=== PATIENT | male | born 1945 | race Caucasian/White ===

== ENCOUNTER 2024-06-30 14:20 | Inpatient (IN) | payer OTHER ==
[~2024-06-30] VITALS: Ht 183 cm; Wt 99.8 kg
[2024-06-30 14:45] VITALS: BP 95/63
[2024-06-30] MEDS ORDERED: ATARAX,VISTARIL10 MG PO (14:56)
[2024-06-30] MEDS ORDERED: PROPAFENONE HC150 MG PO (14:56)
[2024-06-30] MEDS ORDERED: TRAZODONE50 MG PO (14:57)
[2024-06-30] MEDS ORDERED: Lopressor25 MG PO (14:57)
[2024-06-30] MEDS ORDERED: XARE20MG PO (14:57)
[2024-06-30] MEDS ORDERED: RISPERIDONE2 M2 PO (14:57)
[2024-06-30] MEDS ORDERED: LORazepam 1 MG TAB PO ONE ×2 (15:25→17:35)
[2024-06-30 15:39] LABS: BASO % 0.3 % (0.0-1.0); EOS # 0.1 10*3/uL (0.0-0.4); EOS % 1.2 % (1.0-4.0); HEMATOCRIT 48.6 % (42.0-52.0); LYMPH % 28.6 % (27.0-41.0); MEAN CORPUSCULAR HGB 27.4 pg (27.0-31.0); MEAN CORPUSCULAR HGB CONC 31.9 g/dl (33.0-37.0); MEAN PLATELET VOLUME 9.1 fl (9.6-12.3); MONO # 0.9 10*3/uL (0.1-1.0); MONO % 12.8 % (3.0-9.0); NEUT # 3.9 10*3/uL (2.3-7.9); PLATELET COUNT AUTOMATED 281 10*3/uL (130-400); RED BLOOD COUNT 5.65 10*6/uL (4.50-5.90); RED CELL DISTRI WIDTH 14.2 % (0-14.5); WHITE BLOOD COUNT 6.8 10*3/uL (4.8-10.8)
[2024-06-30 15:49] LABS: ACT PARTIAL THROMBO TIME 32.6 SECONDS (20.0-32.1)
[2024-06-30 16:01] LABS: ALKALINE PHOSPHATASE 85 U/L (46-116); BUN 9 mg/dl (9-23); CHLORIDE 104 mmol/L (98-107); CPK 42 U/L (34-171); POTASSIUM 4.2 mmol/L (3.4-5.1); SGPT/ALT 13 U/L (5-49); TOTAL PROTEIN 7.3 gm/dL (6.0-8.0)
[2024-06-30 16:18] LABS: ETHYL ALCOHOL < 3.0 mg/dl (<3)
[2024-06-30 17:11] LABS: BILIRUBIN Negative (Negative); BLOOD Negative (Negative); CLARITY Clear (Clear); COLOR Yellow (Yellow); GLUCOSE Negative (Negative); KETONE Negative (Negative); LEUKO ESTERASE Negative (Negative); NITRITE Negative (Negative); PH 5.5 (4.5-8.0); SPECIFIC GRAVITY 1.015 (1.001-1.030)
[2024-06-30 17:16] LABS: URINE AMPHETAMINES Negative (1000ng/ml); URINE BARBITURATES Negative (200ng/ml); URINE BENZODIAZEPINES Negative (200ng/ml); URINE CANNABINOIDS (THC) Negative (50ng/ml); URINE COCAINE Negative (300ng/ml); URINE METHADONE Negative (300ng/ml); URINE OPIATES Negative (300ng/ml); URINE PHENCYCLIDINE Negative (25ng/ml)
[2024-06-30 17:29] LABS: BACTERIA 1+; MUCOUS 1+; WBC 0-2 wbc/hpf (0-5)
[2024-06-30] MEDS ORDERED: LORazepam 1 MG TAB PO PRN (21:20)
[2024-06-30] MEDS ORDERED: LORazepam 2 MG/ML VIAL IM PRN (21:20)
[2024-06-30] MEDS ORDERED: Ziprasidone Mesylate 20 MG VIAL IM PRN (21:25)
[2024-06-30] MEDS ORDERED: DIVALPROEX (DR) 500 MG TAB PO SCH (21:28)
[2024-06-30] MEDS ORDERED: Memantine Hydrochloride 5 MG TAB PO SCH (21:28)
[2024-06-30] MEDS ORDERED: Magnesium Hydroxide 30 ML UDC PO PRN (22:05)
[2024-06-30] MEDS ORDERED: MG-AL HYDROXIDE/SIMETICONE 30 ML UDC PO PRN (22:05)
[2024-06-30] MEDS ORDERED: ACETAMINOPHEN 325 MG TAB PO PRN (22:05)
[2024-06-30] MEDS ORDERED: Menthol/Zinc Oxide 4 GM THIN T PRN (22:10)
[2024-06-30 22:14] VITALS: BP 126/78
[2024-06-30 22:39] VITALS: BP 126/78
[2024-07-01] MEDS ORDERED: Propafenone Hydrochloride 150 MG TAB PO SCH ×2 (06:00→08:00)
[2024-07-01 07:08] LABS: BASO % 0.4 % (0.0-1.0); EOS # 0.1 10*3/uL (0.0-0.4); EOS % 0.9 % (1.0-4.0); HEMATOCRIT 46.1 % (42.0-52.0); LYMPH % 25.4 % (27.0-41.0); MEAN CELL VOLUME 83.5 fl (80.0-94.0); MEAN CORPUSCULAR HGB 27.5 pg (27.0-31.0); MEAN PLATELET VOLUME 9.5 fl (9.6-12.3); MONO # 0.9 10*3/uL (0.1-1.0); MONO % 11.5 % (3.0-9.0); NEUT # 4.9 10*3/uL (2.3-7.9); NEUT % 61.4 % (47.0-73.0); PLATELET COUNT AUTOMATED 271 10*3/uL (130-400); RED BLOOD COUNT 5.52 10*6/uL (4.50-5.90); RED CELL DISTRI WIDTH 14.2 % (0-14.5); WHITE BLOOD COUNT 7.9 10*3/uL (4.8-10.8)
[2024-07-01 07:34] LABS: ALKALINE PHOSPHATASE 78 U/L (46-116); BUN 8 mg/dl (9-23); CHLORIDE 105 mmol/L (98-107); CHOLESTEROL 141 mg/dL (<200); LDL CHOLESTEROL 85 mg/dL (9-159); POTASSIUM 3.7 mmol/L (3.4-5.1); SGPT/ALT 11 U/L (5-49); TOTAL PROTEIN 6.8 gm/dL (6.0-8.0); TRIGLYCERIDES 162 mg/dl (<150)
[2024-07-01 08:25] VITALS: BP 130/85
[2024-07-01] MEDS ORDERED: RIVAROXABAN 20 MG TAB PO SCH (09:00)
[2024-07-01] MEDS ORDERED: Rivastigmine Tartrate 4.6 MG/24 HR PATCH T SCH (09:00)
[2024-07-01] MEDS ORDERED: Doxycycline Hyclate 100 MG CAP PO SCH (09:00)
[2024-07-01] MEDS ORDERED: DIVALPROEX (DR) 250 MG TAB PO SCH (09:00)
[2024-07-01 09:02] LABS: VITAMIN D, 25-HYDROXY 39.8 ng/mL (30-100)
[2024-07-01] MEDS ORDERED: Metoprolol Tartrate 25 MG TAB PO SCH (10:00)
[2024-07-01] MEDS ORDERED: CYANOCOBALAMIN 1,000 MCG/ML VIAL IM SCH (11:00)
[2024-07-01 14:00] VITALS: BP 130/85
[2024-07-02 08:00] VITALS: BP 120/63
[2024-07-02] MEDS ORDERED: Albuterol Sulf/Ipratropium 3 ML VIAL NEB SCH (08:25)
[2024-07-02] MEDS ORDERED: hydrOXYzine pamoate 25 MG CAP PO PRN (09:25)
[2024-07-02 14:00] VITALS: BP 120/63
[2024-07-03] MEDS ORDERED: Rivastigmine Tartrate 9.5 MG/24 HR PATCH T SCH (09:00)
[2024-07-03] MEDS ORDERED: DIVALPROEX (DR) 500 MG TAB PO SCH (13:00)
[2024-07-03 20:00] VITALS: BP 110/64
[2024-07-03] MEDS ORDERED: Memantine Hydrochloride 5 MG TAB PO SCH (21:00)
[2024-07-04] MEDS ORDERED: ASPIRIN ENTERIC COATED 81 MG TAB PO ONE (02:05)
[2024-07-04 08:00] VITALS: BP 107/51
[2024-07-04] MEDS ORDERED: RIVASTIGMINE 13.3 MG/24 HR TDM T SCH (09:00)
[2024-07-04] MEDS ORDERED: Memantine Hydrochloride 5 MG TAB PO SCH (09:00)
[2024-07-04] MEDS ORDERED: Albuterol Sulf/Ipratropium 3 ML VIAL NEB PRN (09:40)
[2024-07-04 20:00] VITALS: BP 104/520
[2024-07-04] MEDS ORDERED: Memantine Hydrochloride 10 MG TAB PO SCH (21:00)
[2024-07-05 08:10] VITALS: BP 107/61
[2024-07-05] MEDS ORDERED: LORazepam 0.5 MG TAB PO SCH (13:00)
[2024-07-05 17:09] LABS: BILIRUBIN Negative (Negative); BLOOD Negative (Negative); CLARITY Clear (Clear); COLOR Yellow (Yellow); GLUCOSE Negative (Negative); KETONE 1+ (Negative); LEUKO ESTERASE Negative (Negative); NITRITE Negative (Negative); PH 5.5 (4.5-8.0); SPECIFIC GRAVITY 1.025 (1.001-1.030)
[2024-07-05 17:33] LABS: BACTERIA TRACE; RBC 0-2 rbc/hpf (0-2); WBC 0-2 wbc/hpf (0-5)
[2024-07-05 20:00] VITALS: BP 116/64
[2024-07-05] MEDS ORDERED: Memantine Hydrochloride 10 MG TAB PO SCH (21:00)
[2024-07-06 08:00] VITALS: BP 117/66
[2024-07-06] MEDS ORDERED: LORazepam 0.5 MG TAB PO SCH (13:00)
[2024-07-06] MEDS ORDERED: LORazepam 1 MG TAB PO SCH (21:00)
[2024-07-07 08:48] VITALS: BP 96/70
[2024-07-07 20:00] VITALS: BP 104/31
[2024-07-08 07:51] VITALS: BP 136/83
[2024-07-08] MEDS ORDERED: hydrOXYzine pamoate 25 MG CAP PO SCH (13:00)
[2024-07-08 20:00] VITALS: BP 115/55
[2024-07-09 07:57] VITALS: BP 98/72
[2024-07-09 07:59] LABS: BASO % 0.4 % (0.0-1.0); EOS # 0.1 10*3/uL (0.0-0.4); EOS % 1.5 % (1.0-4.0); HEMATOCRIT 45.8 % (42.0-52.0); LYMPH # 2.6 10*3/uL (1.3-4.4); LYMPH % 27.2 % (27.0-41.0); MEAN CELL VOLUME 84.5 fl (80.0-94.0); MEAN CORPUSCULAR HGB 27.7 pg (27.0-31.0); MEAN CORPUSCULAR HGB CONC 32.8 g/dl (33.0-37.0); MEAN PLATELET VOLUME 9.4 fl (9.6-12.3); MONO # 1.2 10*3/uL (0.1-1.0); NEUT # 5.5 10*3/uL (2.3-7.9); NEUT % 57.7 % (47.0-73.0); PLATELET COUNT AUTOMATED 310 10*3/uL (130-400); RED BLOOD COUNT 5.42 10*6/uL (4.50-5.90); RED CELL DISTRI WIDTH 14.8 % (0-14.5); WHITE BLOOD COUNT 9.6 10*3/uL (4.8-10.8)
[2024-07-09 08:25] LABS: ALKALINE PHOSPHATASE 72 U/L (46-116); BUN 17 mg/dl (9-23); CHLORIDE 106 mmol/L (98-107); POTASSIUM 4.1 mmol/L (3.4-5.1); SGPT/ALT 25 U/L (5-49); TOTAL PROTEIN 7.2 gm/dL (6.0-8.0)
[2024-07-09 20:48] VITALS: BP 118/60
[2024-07-09] MEDS ORDERED: TEMAZEPAM 15 MG CAP PO SCH (21:00)
[2024-07-09] MEDS ORDERED: Acetaminophen/Hydrocodone 5 MG/325 MG TABLET PO PRN (22:00)
[2024-07-10 07:51] VITALS: BP 124/78
[2024-07-10 20:00] VITALS: BP 128/80
[2024-07-11 08:00] VITALS: BP 127/55
[2024-07-11] MEDS ORDERED: DIVALPROEX SOD500 MG PO (09:05)
[2024-07-11] MEDS ORDERED: HYDROXYZINE PAM25 M1 PO (09:05)
[2024-07-11] MEDS ORDERED: RIVASTIGMINE1 EAC2 T (09:05)
[2024-07-11] MEDS ORDERED: MEMANTINE HCL10 MG PO (09:05)
== END 2024-07-11 13:21 | disposition home or self-care (01) | DRG 883 ==
LOC: ED 14:20 → 3N 18:48 → EDHOLD 18:48 → 3N 20:51
PROVIDERS: Internal Medicine; Nurse Practitioner; ADMIT Psychiatry & Neurology Psychiatry; ATTEND Psychiatry & Neurology Psychiatry
PROC: GZHZZZZ Group Psychotherapy (ICD-10-PCS; principal; 2024-07-01)
PROC: GZ56ZZZ Individual Psychotherapy, Supportive (ICD-10-PCS; 2024-07-01)
DX: F63.81 Intermittent explosive disorder (principal); N18.31 Chronic kidney disease, stage 3a; J15.69 Pneumonia due to other Gram-negative bacteria; F10.27 Alcohol dependence with alcohol-induced persisting dementia; F02.811 Dementia in other diseases classified elsewhere, unspecified severity, with agitation; F02.84 Dementia in other diseases classified elsewhere, unspecified severity, with anxiety; F39 Unspecified mood [affective] disorder; R73.9 Hyperglycemia, unspecified; G30.9 Alzheimer's disease, unspecified; F10.26 Alcohol dependence with alcohol-induced persisting amnestic disorder; Z96.651 Presence of right artificial knee joint; Z88.6 Allergy status to analgesic agent; Z88.1 Allergy status to other antibiotic agents; Z88.8 Allergy status to other drugs, medicaments and biological substances; Z91.09 Other allergy status, other than to drugs and biological substances; Z79.01 Long term (current) use of anticoagulants; Z79.899 Other long term (current) drug therapy; Z90.49 Acquired absence of other specified parts of digestive tract; Z81.8 Family history of other mental and behavioral disorders; Y90.0 Blood alcohol level of less than 20 mg/100 ml

== ENCOUNTER 2024-07-25 12:55 | Observation (INO) | payer OTHER ==
[~2024-07-25] VITALS: Ht 167.6 cm; Wt 88.1 kg
[~2024-07-25 12:55] MED LIST: ATARAX,VISTARIL10 MG PO; COLACE100 MG PO; DIVALPROEX SOD500 MG PO; HYDROXYZINE PAM25 M1 PO; Lopressor25 MG PO; MEMANTINE HCL10 MG PO; PROPAFENONE HC150 MG PO; RISPERDAL2 M1 PO; RISPERIDONE2 M2 PO; RIVASTIGMINE1 EAC2 T; TRAZODONE50 MG PO; XARE20MG PO
[2024-07-25] MEDS ORDERED: ACETAMINOPHEN 650 MG SUPP R PRN (13:25)
[2024-07-25] MEDS ORDERED: BISACODYL 10 MG SUPP R PRN (13:25)
[2024-07-25] MEDS ORDERED: ACETAMINOPHEN 325 MG TAB PO PRN (13:25)
[2024-07-25] MEDS ORDERED: BISACODYL 5 MG TAB PO PRN (13:25)
[2024-07-25] MEDS ORDERED: Acetaminophen/Hydrocodone 5 MG/325 MG TABLET PO PRN (13:25)
[2024-07-25] MEDS ORDERED: Magnesium Hydroxide 30 ML UDC PO PRN (13:25)
[2024-07-25 15:20] VITALS: BP 112/56
[2024-07-25] MEDS ORDERED: IOHEXOL 300 MG/ML 100 ML VIAL IV ONE (15:40)
[2024-07-25 16:00] VITALS: BP 116/69
[2024-07-25] MEDS ORDERED: FOAM BANDAGE 1 EACH BANDAGE T ONE (16:29)
[2024-07-25] MEDS ORDERED: Doxycycline Hyclate 100 MG in SODIUM CHLORIDE 0.9% 250 ML IV SCH (17:00)
[2024-07-25] MEDS ORDERED: Ceftriaxone Sodium 1 GM in SYRINGE INFUSION 10 ML IV SCH (18:00)
[2024-07-25 18:31] LABS: FREE T4 1.56 ng/dl (0.89-1.76)
[2024-07-25 20:00] VITALS: BP 110/61
[2024-07-25] MEDS ORDERED: OLOPATADINE HYDROCHLORIDE OPH SCH (20:00)
[2024-07-25] MEDS ORDERED: LORAZEPAM 0.5 MG IV PRN (23:05)
[2024-07-25] MEDS ORDERED: LORazepam 2 MG/ML VIAL IV PRN (23:15)
[2024-07-25] MEDS ORDERED: Water, Sterile 10 ML VIAL IV PRN (23:15)
[2024-07-26] VITALS: BP 144/89
[2024-07-26 06:25] LABS: BUN 13 mg/dl (9-23); CHLORIDE 107 mmol/L (98-107); POTASSIUM 3.6 mmol/L (3.4-5.1)
[2024-07-26 06:29] LABS: HEMATOCRIT 41.9 % (42.0-52.0); MEAN CELL VOLUME 85.2 fl (80.0-94.0); MEAN CORPUSCULAR HGB 28.3 pg (27.0-31.0); MEAN CORPUSCULAR HGB CONC 33.2 g/dl (33.0-37.0); MEAN PLATELET VOLUME 9.8 fl (9.6-12.3); PLATELET COUNT AUTOMATED 241 10*3/uL (130-400); RED BLOOD COUNT 4.92 10*6/uL (4.50-5.90); RED CELL DISTRI WIDTH 15.2 % (0-14.5); WHITE BLOOD COUNT 11.4 10*3/uL (4.8-10.8)
[2024-07-26 06:33] LABS: MANUAL DIFF REFLEX YES
[2024-07-26 07:00] LABS: BURR CELLS MODERATE; OVALOCYTES FEW; PLATELET SUFFICIENCY NORMAL (NORMAL); POLYCHROMASIA SLIGHT; ROULEAUX SLIGHT; TOTAL CELLS COUNTED 100 #CELLS
[2024-07-26 08:00] VITALS: BP 97/38
[2024-07-26] MEDS ORDERED: RIVAROXABAN 20 MG TAB PO SCH (10:00)
[2024-07-26] MEDS ORDERED: SODIUM CHLORIDE 0.9% 100 ML BAG IV ONE (10:15)
[2024-07-26] MEDS ORDERED: IOHEXOL 350 MG/ML 100 ML VIAL IV ONE (10:15)
[2024-07-26 12:00] VITALS: BP 115/42
[2024-07-26 16:00] VITALS: BP 117/76; BP 96/52
[2024-07-26] MEDS ORDERED: ALOE VERA NAS PRN (18:05)
[2024-07-26] MEDS ORDERED: GLYCERIN NAS PRN (18:05)
[2024-07-26 18:08] LABS: BILIRUBIN Negative (Negative); BLOOD 2+ (Negative); CLARITY Clear (Clear); COLOR Dark Yellow (Yellow); GLUCOSE Negative (Negative); KETONE 2+ (Negative); LEUKO ESTERASE Trace (Negative); NITRITE Negative (Negative); PH 5.5 (4.5-8.0); SPECIFIC GRAVITY >= 1.030 (1.001-1.030)
[2024-07-26 18:21] LABS: BACTERIA 1+; RBC 41-50 rbc/hpf (0-2)
[2024-07-26 20:00] VITALS: BP 127/54
[2024-07-26] MEDS ORDERED: FOAM BANDAGE 1 EACH BANDAGE T ONE (23:34)
[2024-07-26] MEDS ORDERED: LORazepam 2 MG/ML VIAL IV PRN (23:41)
[2024-07-27] VITALS: BP 113/63
[2024-07-27] MEDS ORDERED: FOAM BANDAGE 1 EACH BANDAGE T ONE (03:50)
[2024-07-27 06:21] LABS: BUN 16 mg/dl (9-23); CHLORIDE 106 mmol/L (98-107); POTASSIUM 3.5 mmol/L (3.4-5.1)
[2024-07-27 06:32] LABS: MEAN CELL VOLUME 82.6 fl (80.0-94.0); MEAN CORPUSCULAR HGB 27.7 pg (27.0-31.0); MEAN CORPUSCULAR HGB CONC 33.5 g/dl (33.0-37.0); MEAN PLATELET VOLUME 9.2 fl (9.6-12.3); PLATELET COUNT AUTOMATED 297 10*3/uL (130-400); RED BLOOD COUNT 4.84 10*6/uL (4.50-5.90); RED CELL DISTRI WIDTH 14.8 % (0-14.5); WHITE BLOOD COUNT 12.4 10*3/uL (4.8-10.8)
[2024-07-27 06:34] LABS: MANUAL DIFF REFLEX YES
[2024-07-27 07:15] LABS: BASOPHILS 1 % (0-1); BURR CELLS FEW; OVALOCYTES FEW; PLATELET SUFFICIENCY NORMAL (NORMAL); POLYCHROMASIA SLIGHT; ROULEAUX SLIGHT; TOTAL CELLS COUNTED 100 #CELLS; VACUOLATION OF NEUTROPHILS SLIGHT
[2024-07-27 08:00] VITALS: BP 125/71
[2024-07-27] MEDS ORDERED: Rivastigmine Tartrate 4.6 MG/24 HR PATCH T SCH (11:05)
[2024-07-27] MEDS ORDERED: VIBRA-TAB100 MG PO (11:33)
[2024-07-27] MEDS ORDERED: LORazepam 0.5 MG TAB PO SCH (13:00)
[2024-07-28] MEDS ORDERED: ESCITALOPRAM OXALATE 10 MG TAB PO SCH (10:00)
== END 2024-07-27 12:33 ==
LOC: 4E 12:55
PROVIDERS: Student in an Organized Health Care Education/Training Program; ADMIT Internal Medicine; ATTEND Internal Medicine
DX: F39 Unspecified mood [affective] disorder (principal); F63.81 Intermittent explosive disorder; R53.1 Weakness; F23 Brief psychotic disorder; J96.01 Acute respiratory failure with hypoxia; I51.7 Cardiomegaly; K22.70 Barrett's esophagus without dysplasia; F03.90 Unspecified dementia, unspecified severity, without behavioral disturbance, psychotic disturbance, mood disturbance, and anxiety; I48.91 Unspecified atrial fibrillation; J69.0 Pneumonitis due to inhalation of food and vomit; D64.9 Anemia, unspecified; E43 Unspecified severe protein-calorie malnutrition; Z79.899 Other long term (current) drug therapy

== ENCOUNTER 2024-07-27 13:39 | Inpatient (IN) | payer OTHER ==
[~2024-07-27] VITALS: Ht 177.8 cm; Wt 84.9 kg
[~2024-07-27 13:39] MED LIST changes: +VIBRA-TAB100 MG PO
[2024-07-27] MEDS ORDERED: LORazepam 1 MG TAB PO PRN (13:55)
[2024-07-27] MEDS ORDERED: ACETAMINOPHEN 325 MG TAB PO PRN (13:55)
[2024-07-27] MEDS ORDERED: MG-AL HYDROXIDE/SIMETICONE 30 ML UDC PO PRN (13:55)
[2024-07-27] MEDS ORDERED: Magnesium Hydroxide 30 ML UDC PO PRN (13:55)
[2024-07-27] MEDS ORDERED: Ziprasidone Mesylate 20 MG VIAL IM PRN (14:00)
[2024-07-27] MEDS ORDERED: Water, Sterile 10 ML VIAL IM PRN (14:00)
[2024-07-27] MEDS ORDERED: LORazepam 2 MG/ML VIAL IM PRN (14:00)
[2024-07-27 14:05] VITALS: BP 119/86
[2024-07-27 20:00] VITALS: BP 119/72
[2024-07-27] MEDS ORDERED: LORazepam 0.5 MG TAB PO SCH (21:00)
[2024-07-28 08:49] VITALS: BP 112/52
[2024-07-28] MEDS ORDERED: Rivastigmine Tartrate 4.6 MG/24 HR PATCH T SCH (09:00)
[2024-07-28] MEDS ORDERED: RIVAROXABAN 20 MG TAB PO SCH ×2 (09:00→10:00)
[2024-07-28] MEDS ORDERED: ESCITALOPRAM OXALATE 10 MG TAB PO SCH (10:00)
[2024-07-28] MEDS ORDERED: Doxycycline Hyclate 100 MG CAP PO SCH (10:00)
[2024-07-28] MEDS ORDERED: Metoprolol Tartrate 25 MG TAB PO SCH (10:00)
[2024-07-28] MEDS ORDERED: Duloxetine Hydrochloride 30 MG CAP PO SCH (10:10)
[2024-07-28] MEDS ORDERED: Menthol/Zinc Oxide 4 GM THIN T PRN (11:00)
[2024-07-28] MEDS ORDERED: Propafenone Hydrochloride 150 MG TAB PO SCH (14:00)
[2024-07-28 20:00] VITALS: BP 126/45
[2024-07-28] MEDS ORDERED: DIVALPROEX (DR) 500 MG TAB PO SCH (21:00)
[2024-07-28] MEDS ORDERED: Memantine Hydrochloride 5 MG TAB PO SCH (21:00)
[2024-07-28] MEDS ORDERED: Menthol/Zinc Oxide 4 GM THIN T SCH (22:00)
[2024-07-29 08:32] VITALS: BP 111/71
[2024-07-29 20:00] VITALS: BP 90/37
[2024-07-29] MEDS ORDERED: Duloxetine Hydrochloride 30 MG CAP PO SCH (21:00)
[2024-07-29] MEDS ORDERED: Memantine Hydrochloride 5 MG TAB PO SCH (21:00)
[2024-07-30 07:51] VITALS: BP 102/53
[2024-07-30] MEDS ORDERED: Rivastigmine Tartrate 9.5 MG/24 HR PATCH T SCH (09:00)
[2024-07-30 20:00] VITALS: BP 109/74
[2024-07-31 07:53] VITALS: BP 100/53
[2024-07-31] MEDS ORDERED: TRIAMCINOLONE ACETO T SCH (14:00)
[2024-07-31] MEDS ORDERED: NYSTATIN T SCH (14:00)
[2024-07-31 20:00] VITALS: BP 99/53
[2024-07-31] MEDS ORDERED: Memantine Hydrochloride 10 MG TAB PO SCH (21:00)
[2024-08-01 08:00] VITALS: BP 98/60
[2024-08-01] MEDS ORDERED: hydrOXYzine pamoate 25 MG CAP PO PRN (13:00)
[2024-08-01 20:00] VITALS: BP 105/66
[2024-08-02 07:37] LABS: BASO # 0.1 10*3/uL (0.0-0.1); BASO % 0.8 % (0.0-1.0); EOS # 0.2 10*3/uL (0.0-0.4); EOS % 2.7 % (1.0-4.0); MEAN CELL VOLUME 86.8 fl (80.0-94.0); MEAN CORPUSCULAR HGB 27.9 pg (27.0-31.0); MEAN CORPUSCULAR HGB CONC 32.1 g/dl (33.0-37.0); MEAN PLATELET VOLUME 8.8 fl (9.6-12.3); MONO # 1.2 10*3/uL (0.1-1.0); MONO % 13.9 % (3.0-9.0); NEUT # 4.4 10*3/uL (2.3-7.9); PLATELET COUNT AUTOMATED 308 10*3/uL (130-400); RED BLOOD COUNT 4.84 10*6/uL (4.50-5.90); RED CELL DISTRI WIDTH 15.9 % (0-14.5); WHITE BLOOD COUNT 8.5 10*3/uL (4.8-10.8)
[2024-08-02 08:01] LABS: ALKALINE PHOSPHATASE 61 U/L (46-116); BUN 12 mg/dl (9-23); CHLORIDE 106 mmol/L (98-107); POTASSIUM 4.1 mmol/L (3.4-5.1); SGPT/ALT 10 U/L (5-49); TOTAL PROTEIN 6.3 gm/dL (6.0-8.0)
[2024-08-02] MEDS ORDERED: RIVASTIGMINE 13.3 MG/24 HR TDM T SCH (09:00)
[2024-08-02 09:22] VITALS: BP 107/62
[2024-08-02 20:00] VITALS: BP 94/67
[2024-08-03 08:00] VITALS: BP 96/64
[2024-08-03] MEDS ORDERED: Duloxetine Hydrochloride 60 MG CAP PO SCH (09:00)
[2024-08-03] MEDS ORDERED: Duloxetine Hydrochloride 30 MG CAP PO ONE (11:10)
[2024-08-03 19:19] VITALS: BP 113/60
[2024-08-03] MEDS ORDERED: Duloxetine Hydrochloride 30 MG CAP PO SCH (21:00)
[2024-08-04 08:35] VITALS: BP 110/70
[2024-08-04 20:00] VITALS: BP 140/60
[2024-08-04] MEDS ORDERED: Trihexyphenidyl Hydrochlorid 2 MG TAB PO SCH (21:00)
[2024-08-05 07:56] VITALS: BP 109/62
[2024-08-05] MEDS ORDERED: MEMANTINE HCL10 MG PO (10:09)
[2024-08-05] MEDS ORDERED: DULOXETINE HCL60 MG PO (10:09)
[2024-08-05] MEDS ORDERED: DIVALPROEX SOD500 MG PO (10:09)
[2024-08-05] MEDS ORDERED: RIVASTIGMINE1 EAC2 T (10:09)
[2024-08-05] MEDS ORDERED: LORAZEPAM0.5 M1 PO (10:09)
[2024-08-05] MEDS ORDERED: DULOXETINE HCL30 MG PO (10:09)
[2024-08-05] MEDS ORDERED: TRIHEXYPHENIDYL2 M3 PO (10:09)
== END 2024-08-05 14:01 | DRG 883 ==
LOC: 3N 13:39
PROVIDERS: Nurse Practitioner; ADMIT Psychiatry & Neurology Psychiatry; ATTEND Psychiatry & Neurology Psychiatry
PROC: GZHZZZZ Group Psychotherapy (ICD-10-PCS; principal; 2024-08-03)
PROC: GZ51ZZZ Individual Psychotherapy, Behavioral (ICD-10-PCS; 2024-08-03)
DX: F63.81 Intermittent explosive disorder (principal); J69.0 Pneumonitis due to inhalation of food and vomit; F23 Brief psychotic disorder; F02.82 Dementia in other diseases classified elsewhere, unspecified severity, with psychotic disturbance; F41.1 Generalized anxiety disorder; G30.9 Alzheimer's disease, unspecified; I48.91 Unspecified atrial fibrillation; K22.70 Barrett's esophagus without dysplasia; I51.7 Cardiomegaly; L89.892 Pressure ulcer of other site, stage 2; Z96.651 Presence of right artificial knee joint; Z96.611 Presence of right artificial shoulder joint; Z82.0 Family history of epilepsy and other diseases of the nervous system; Z88.7 Allergy status to serum and vaccine; Z88.1 Allergy status to other antibiotic agents; Z91.030 Bee allergy status; Z90.49 Acquired absence of other specified parts of digestive tract; Z88.8 Allergy status to other drugs, medicaments and biological substances